=== PATIENT | female | born 1955 | race Caucasian/White ===

== ENCOUNTER → 2016-05-14 | Outpatient (CLI) | payer BC ==
--- NOTE | 2016-05-15 09:48 | MM ---
Reason for exam: screening (asymptomatic). Last mammogram was performed 1 year and 1 month ago. History: Patient is postmenopausal. Benign excisional biopsy of the left breast, 1994. Took hormonal contraceptives for 6 months. Taking estrogen for 5 years 10 months beginning at age 52. Physical Findings: A clinical breast exam by your physician is recommended on an annual basis and results should be correlated with mammographic findings. MG Screening Mammo w CAD Bilateral CC and MLO view(s) were taken. Prior study comparison: April 27, 2015, bilateral MG screening mammo w CAD. February 15, 2014, bilateral MG screening mammo w CAD. The breast tissue is heterogeneously dense. This may lower the sensitivity of mammography. Finding: There are typically benign calcifications. No significant changes in finding since April 27, 2015 and February 15, 2014. ASSESSMENT: Benign, BI-RAD 2 RECOMMENDATION: Routine screening mammogram of both breasts in 1 year.
== END | disposition home or self-care (01) ==
LOC: RADMAMWWP 08:20
PROVIDERS: ATTEND Family Medicine
DX: Z12.31 Encounter for screening mammogram for malignant neoplasm of breast (principal)

== ENCOUNTER → 2017-04-11 | Outpatient (CLI) | payer BC ==
--- NOTE | 2017-04-11 10:40 | XR ---
EXAMINATION TYPE: XR abdomen 2V DATE OF EXAM: 04/11/2017 COMPARISON: 02/11/2010 INDICATION: Epigastric pain, abdominal pain x1 day TECHNIQUE: Single view abdomen supine view. Exam is supplemented with an upright view. FINDINGS: There is a normal bowel gas pattern. Psoas margins are normal. No organomegaly is present. No suspicious air-fluid levels or differential air-fluid levels are present. IMPRESSION: 1. Normal abdomen
== END | disposition home or self-care (01) ==
LOC: RADXRMAIN 09:10
PROVIDERS: ATTEND Family Medicine
DX: R10.13 Epigastric pain (principal)
CPT/HCPCS: 74020

== ENCOUNTER → 2017-04-24 | Outpatient (CLI) | payer BC ==
--- NOTE | 2017-04-24 09:07 | CT ---
EXAMINATION TYPE: CT abdomen wo/w con DATE OF EXAM: 04/24/2017 HISTORY: Acute pancreatitis CT DLP: 2087.50mGycm Automated Exposure Control for Dose Reduction was Utilized. CONTRAST: CT scan of the abdomen is performed without and with IV Contrast, patient injected with 100 ml mL of Omnipaque 300. Delayed images of the abdomen were also obtained as well as coronal and sagittal refor mats. COMPARISON: None. FINDINGS: LUNG BASES: Minimal bibasilar subsegmental atelectasis. LIVER/GB: The liver is of unremarkable enhancement and morphology without focal hepatic lesion or int rahepatic biliary ductal dilatation. Gallbladder surgically absent. PANCREAS: Very minimal peripancreatic fat stranding is seen surrounding and predominantly at the vent ral aspect of the pancreatic body such as on series 7 image 27 through 30. There is no pancreatic romel mary dilatation or identifiable pancreatic mass. No pancreatic parenchymal calcifications. Pancreas en hances homogeneously without focal area of necrosis. No splenic arterial pseudocyst is identified or portal venous/splenic or superior mesenteric venous thrombosis. No peripancreatic fluid collections t o suggest pseudocyst or abscess. SPLEEN: No evidence of splenomegaly. ADRENALS: No significant abnormality is seen. KIDNEYS: No renal calculi on the unenhanced images. No hydronephrosis. The kidneys enhance and excret e symmetrically other than a 3 mm left anterior midpole renal lesion that is too small to accurately characterize seen on delayed images. BOWEL: No significant abnormality is seen. No dilated bowel. LYMPH NODES: No greater than 1cm abdominal or pelvic lymph nodes are appreciated. OSSEOUS STRUCTURES: Ivge-rt-[id number] multilevel degenerative changes of the visualized thoracic spine are present.. OTHER: Small fat filled umbilical hernia has a neck measuring 7 mm. IMPRESSION: Mild acute uncomplicated edematous pancreatitis without sequela of chronic pancreatitis. No peripancr eatic fluid collection to suggest pseudocyst or abscess. No portal vein, superior mesenteric vein, or splenic vein thrombosis. No pancreatic ductal dilatation or gross evidence of pancreatic mass. No ar ea of pancreatic necrosis.
== END | disposition home or self-care (01) ==
LOC: RADCTMAIN 08:01
PROVIDERS: ATTEND Physician Assistant
DX: K85.90 Acute pancreatitis without necrosis or infection, unspecified (principal)
CPT/HCPCS: 74170; Q9967

== ENCOUNTER → 2017-06-05 | Outpatient (CLI) | payer BC ==
[2017-06-05 15:35] LABS: HCT 45.8 % (34.0-46.0); HGB 14.4 gm/dL (11.4-16.0); MCH 28.3 pg (25.0-35.0); MCHC 31.3 g/dL (31.0-37.0); MCV 90.3 fL (80.0-100.0); Platelet Count 274 k/uL (150-450); RBC 5.07 m/uL (3.80-5.40); RDW 13.3 % (11.5-15.5); WBC 8.8 k/uL (3.8-10.6)
[2017-06-05 15:46] LABS: Albumin 4.1 g/dL (3.5-5.0); Bilirubin, Delta 0.4 mg/dL (0.0-0.2); Bilirubin,Unconjugated 0.1 mg/dL (0.0-1.1); Total Bilirubin 0.5 mg/dL (0.2-1.3); Total Protein 7.3 g/dL (6.3-8.2)
== END | disposition home or self-care (01) ==
LOC: LABWHC1 14:59
DX: Z09 Encounter for follow-up examination after completed treatment for conditions other than malignant neoplasm (principal); Z87.19 Personal history of other diseases of the digestive system
CPT/HCPCS: 36415; 80076; 82150; 83690; 85027; 86301

== ENCOUNTER → 2017-06-19 | Outpatient (CLI) | payer BC ==
--- NOTE | 2017-06-19 09:30 | US ---
EXAMINATION TYPE: US abdomen complete DATE OF EXAM: 06/19/2017 COMPARISON: ct abdomen April 24, 2017 CLINICAL HISTORY: Z87.19 history of pancreatitis. Large body habitus EXAM MEASUREMENTS: Liver Length: 16.1 cm Gallbladder Wall: Surgically absent cm CBD: 0.3 cm Spleen: 9.3 cm Right Kidney: 11.2 x 4.3 x 4.8 cm Left Kidney: 12.0 x 5.8 x 6.6 cm Pancreas: Tail obscured by overlying bowel gas Liver: Increased attenuation Gallbladder: Surgically absent Evidence for sonographic Mijares's sign: No CBD: wnl Spleen: wnl Right Kidney: No hydronephrosis or masses seen Left Kidney: small cortical cyst 0.9 x.08 x 0.7 cm Upper IVC: wnl portions seen Abd Aorta: wnlportions seen Exam is slightly suboptimal secondary to patient's large body habitus. The visualized liver is heterogeneously hyperechoic. The intrahepatic portion of the IVC and proxima l abdominal aorta are within normal limits. Gallbladder is surgically absent. Common bile duct is unr emarkable. The visualized portions of the pancreas are slightly heterogeneous. The spleen is unrema rkable. Kidneys are symmetric and free of hydronephrosis. No worrisome solid or cystic renal lesion s are seen. IMPRESSION: Diffuse fatty infiltration of liver redemonstrated. No ultrasound evidence for complicati on related to acute pancreatitis.
== END | disposition home or self-care (01) ==
LOC: RADUSWWP 08:10
DX: K76.0 Fatty (change of) liver, not elsewhere classified (principal); Z87.19 Personal history of other diseases of the digestive system
CPT/HCPCS: 76700

== ENCOUNTER → 2019-01-28 | Outpatient (CLI) | payer OTHER ==
--- NOTE | 2019-01-29 11:52 | MM ---
Reason for exam: screening (asymptomatic). Last mammogram was performed 2 years and 9 months ago. History: Patient is postmenopausal. Benign excisional biopsy of the left breast, 1994. Took hormonal contraceptives for 6 months. Taking estrogen for 8 years 7 months beginning at age 52. Physical Findings: A clinical breast exam by your physician is recommended on an annual basis and results should be correlated with mammographic findings. MG 3D Screening Mammo W/Cad Bilateral CC and MLO view(s) were taken. Prior study comparison: May 14, 2016, bilateral MG screening mammo w CAD. April 27, 2015, bilateral MG screening mammo w CAD. The breast tissue is heterogeneously dense. This may lower the sensitivity of mammography. There is a stable left lower inner quadrant anterior depth low density mass back to 2013. There is a new 2mm group of right central inner calcifications at middle depth. Benign appearing left calcifications noted. Post surgical change on the left. ASSESSMENT: Incomplete: need additional imaging evaluation, BI-RAD 0 RECOMMENDATION: Special view mammogram of the right breast. [facility] will attempt to contact patient to return for supplemental views.
== END | disposition home or self-care (01) ==
LOC: RADMAMWWP 11:57
PROVIDERS: ATTEND Family Medicine
DX: Z12.31 Encounter for screening mammogram for malignant neoplasm of breast (principal)
CPT/HCPCS: 77063; 77067

== ENCOUNTER → 2019-02-15 | Outpatient (CLI) | payer OTHER ==
--- NOTE | 2019-02-16 07:48 | MM ---
Reason for exam: additional evaluation requested from abnormal screening. Last mammogram was performed 1 month ago. History: Patient is postmenopausal. Benign excisional biopsy of the left breast, 1994. Took hormonal contraceptives for 6 months. Taking estrogen for 11 years beginning at age 52. Physical Findings: Nurse did not find any significant physical abnormalities on exam. MG 3D Work Up W/Cad RT CC with magnification, ML with magnification, and ML view(s) were taken of the right breast. Prior study comparison: January 28, 2019, bilateral MG 3d screening mammo w/cad. May 14, 2016, bilateral MG screening mammo w CAD. The breast tissue is heterogeneously dense. This may lower the sensitivity of mammography. Finding: There are indeterminate grouped/clustered calcifications in the inner quadrant, central position middle depth of the right breast. These results were verbally communicated with the patient and result sheet given to the patient on 02/15/19. ASSESSMENT: Suspicious, BI-RAD 4 RECOMMENDATION: Stereotactic core biopsy of the right breast. Called Dr. Lozoya's office with mammographic findings. Biopsy scheduled for 03/12/19 at 10:20. PRELIMINARY REPORT CALLED AND FAXED TO DR. LOZOYA ON 02/16/19.
== END | disposition home or self-care (01) ==
LOC: RADMAMWWP 14:26
PROVIDERS: ATTEND Family Medicine
DX: R92.8 Other abnormal and inconclusive findings on diagnostic imaging of breast (principal)
CPT/HCPCS: 77061; 77065

== ENCOUNTER 2019-02-19 10:31 | Day surgery (SDC) | payer OTHER ==
[2019-02-17 14:17] VITALS: BMI 38.4
[2019-02-19] MEDS: LACTATED RINGERS 1,000 ML IV SCH ×2 (11:02→11:24)
[2019-02-19] MEDS ORDERED: LIDOCAINE 1% 20 ML VIAL (10MG/ML) FOR IV START INTRADERMA ONE (11:03)
[2019-02-19 11:06] VITALS: TEMP 97.3
[2019-02-19] MEDS ORDERED: fentaNYL (PF) 50 MCG/ML 2 ML AMP ONE (11:24)
[2019-02-19] MEDS ORDERED: MIDAZOLAM 2 MG/2 ML VIAL ONE (11:24)
[2019-02-19] MEDS ORDERED: PROPOFOL 10 MG/ML 20 ML VIAL IV ONE (11:24)
--- NOTE | 2019-02-19 11:42 | P.PCN ---
Date of Procedure: 02/19/19 Procedure(s) Performed: BRIEF HISTORY: Patient is a 63-year-old pleasant WF scheduled for an elective colonoscopy as a part of surveillance screening for colorectal neoplasia. Her last coloscopy was 12 years ago. PROCEDURE PERFORMED: Colonoscopy with biopsy and snare polypectomy. PREOPERATIVE DIAGNOSIS: Screening for colon cancer. IV sedation per Anesthesia. PROCEDURE: After informed consent was obtained, the patient, was brought into the endoscopy unit. IV sedation was administered by Anesthesia under continuous monitoring. Digital rectal examination was normal. Initially the Olympus CF-160 flexible video colonoscope was then inserted in the rectum, gradually advanced into the cecum without any difficulty. Careful examination was performed as the scope was gradually being withdrawn. Ileocecal valve and the appendiceal orifice were visualized and appeared normal. Prep was excellent. Mucosa of the cecum appeared normal in the base of the cecum there was a 2 mm polyp that was removed by cold biopsy. In the transverse colon there was a 7 mm sessile polyp removed by snare polypectomy. Rest of the, ascending colon, transverse colon, descending colon, sigmoid colon, and rectum appeared normal. Retroflexion was performed in the rectum and no lesions were seen. The patient tolerated the procedure well. IMPRESSION: 2 mm cecal polyp status post removal by cold biopsy 7 mm transverse colon polyp status post snare polypectomy RECOMMENDATIONS: Findings of this examination were discussed with the patient as well as a family. She was advised to follow with the biopsy results. If the biopsy shows an adenoma she can have a repeat colonoscopy in 5 years.
[2019-02-19 12:06] VITALS: BP 135/82; PULSE 72; RESP 18
== END 2019-02-19 12:45 | disposition home or self-care (01) ==
LOC: ORWHC2ENDO 10:31
PROVIDERS: ATTEND Internal Medicine Gastroenterology
DX: Z12.11 Encounter for screening for malignant neoplasm of colon (principal); D12.0 Benign neoplasm of cecum; D12.3 Benign neoplasm of transverse colon; I10 Essential (primary) hypertension; J45.909 Unspecified asthma, uncomplicated; K21.9 Gastro-esophageal reflux disease without esophagitis; Z79.51 Long term (current) use of inhaled steroids; Z79.899 Other long term (current) drug therapy
CPT/HCPCS: 88305; 45380; 45385; J2250; J3010; J2704

== ENCOUNTER → 2019-03-12 | Day surgery (SDC) | payer OTHER ==
[2019-03-12 09:52] VITALS: BMI 38.4
[2019-03-12 12:20] VITALS: BP 143/77; PULSE 98; RESP 16; TEMP 97.7
--- NOTE | 2019-03-12 14:05 | MM ---
Stereotactic Mammotome core biopsy right breast. HISTORY: Microcalcifications The Microcalcifications in question within the right breast were targeted by the undersigned. Procedure was performed by the undersigned. Informed consent was obtained and all of the patients questions were answered. The standard sterile technique was utilized and appropriate local anesthesia was obtained with 1% licocaine. Mammotome probe was advanced and multiple core samples were obtained and sent to pathology for interpretation. Microclip marker was deployed at the site of biopsy. Post procedural mammogram demonstrates appropriate deployment of radiopaque clip marker. The patient tolerated the procedure well and left the department in stable condition. Pathology results are pending. IMPRESSION: Successful stereotactic core biopsy right breast with pathology results pending. Pathology Results: Benign RIGHT BREAST, STEREOTACTIC CORE BIOPSY: Fibrocystic changes including sclerosing adenosis with calcifications, cysts, fibrosis and apocrine metaplasia. Recommendation Follow up mammogram of the right breast in 6 months. TARA
== END ==
LOC: RADMAMWWP 09:18
PROVIDERS: ATTEND Surgery
DX: N60.11 Diffuse cystic mastopathy of right breast (principal); N60.21 Fibroadenosis of right breast; N60.81 Other benign mammary dysplasias of right breast
CPT/HCPCS: 88305; 19081; A4648; J2001

== ENCOUNTER → 2020-01-27 | Outpatient (CLI) | payer BC ==
--- NOTE | 2020-01-27 14:24 | MM ---
Reason for exam: additional evaluation requested from prior study. Last mammogram was performed 11 months ago. History: Patient is postmenopausal. Benign MG stereo VAD BX RT of the right breast, March 12, 2019. Benign excisional biopsy of the left breast, 1994. Took hormonal contraceptives for 6 months. Took estrogen for 11 years beginning at age 52. Physical Findings: Nurse did not find any significant physical abnormalities on exam. MG 3D Diag Mammo W/Cad JAZMINE Bilateral CC and MLO view(s) were taken. Prior study comparison: February 15, 2019, right breast MG 3d work up w/cad RT. January 28, 2019, bilateral MG 3d screening mammo w/cad. The breast tissue is heterogeneously dense. This may lower the sensitivity of mammography. Previous mammotome biopsy in the right breast. No significant new findings when compared with previous films. These results were verbally communicated with the patient and result sheet given to the patient on 01/27/20. ASSESSMENT: Benign, BI-RAD 2 RECOMMENDATION: Routine screening mammogram of both breasts in 1 year.
== END | disposition home or self-care (01) ==
LOC: RADMAMWWP 12:54
PROVIDERS: ATTEND Family Medicine
DX: N64.89 Other specified disorders of breast (principal)
CPT/HCPCS: 77062; 77066

== ENCOUNTER → 2020-10-09 | Outpatient (CLI) | payer BC ==
--- NOTE | 2020-10-09 13:10 | US ---
EXAMINATION TYPE: US venous doppler duplex LE LT DATE OF EXAM: 10/09/2020 11:33 AM COMPARISON: NONE CLINICAL HISTORY: M79.605 PAIN IN LEFT LEG. calf and left foot pain, no h/o dvt SIDE PERFORMED: Left TECHNIQUE: The lower extremity deep venous system is examined utilizing real time linear array sonog park with graded compression, doppler sonography and color-flow sonography. VESSELS IMAGED: Common Femoral Vein Deep Femoral Vein Greater Saphenous Vein * Femoral Vein Popliteal Vein Proximal Calf Veins (* superficial vessels) Left Leg: Negative for DVT IMPRESSION: No sonographic evidence for left lower extremity deep vein thrombosis.
== END | disposition home or self-care (01) ==
LOC: RADUSWWP 09:56
PROVIDERS: ATTEND Family Medicine
DX: M79.605 Pain in left leg (principal)

== ENCOUNTER → 2020-11-01 | Outpatient (CLI) | payer BC ==
--- NOTE | 2020-11-01 14:55 | XR ---
EXAMINATION TYPE: XR knee complete LT DATE OF EXAM: 11/01/2020 CLINICAL HISTORY: Left knee pain TECHNIQUE: Three views of the left knee are obtained. COMPARISON: None. FINDINGS: There is no acute fracture/dislocation evident in left knee. There is tricompartmental ost eophytosis. IMPRESSION: There is tricompartmental osteophytosis.
--- NOTE | 2020-11-01 16:25 | XR ---
EXAMINATION TYPE: XR tibia fibula LT DATE OF EXAM: 11/01/2020 CLINICAL HISTORY: Left leg pain TECHNIQUE: Two views of the left leg are obtained. COMPARISON: None. FINDINGS: There is no acute fracture or dislocation seen in the left tibia or fibula. Degenerative c hanges are noted in the knee. IMPRESSION: There is no acute fracture or dislocation seen in the left tibia or fibula.
== END | disposition home or self-care (01) ==
LOC: RADXRMAIN 14:02
PROVIDERS: ATTEND Family Medicine
DX: M25.762 Osteophyte, left knee (principal); M79.605 Pain in left leg

== ENCOUNTER → 2022-02-13 | Outpatient (CLI) | payer BC ==
--- NOTE | 2022-02-14 18:44 | MM ---
Reason for Exam: Screening (asymptomatic). Last mammogram was performed 2 year(s) and 0 month(s) ago. Patient History: Menarche at age 14. First Full-Term at age 23. Left ovary removed at age 52. Right ovary removed at age 52. Hysterectomy at age 52. Postmenopausal. Estrogen for 11 years from age 52 until age 63. Hormonal Contraceptives for 6 months. 1994, Benign Excisional Biopsy on the left side. 03/12/2019, Benign Core Biopsy on the right side. Risk Values: Marbella 5 year model risk: 2.2%. NCI Lifetime model risk: 8.6%. Prior Study Comparison: 01/28/2019 Bilateral Screening Mammogram, [facility]. 02/15/2019 Right Diagnostic Mammogram, [facility]. 01/27/2020 Bilateral Diagnostic Mammogram, [facility]. Tissue Density: The breast tissue is heterogeneously dense. This may lower the sensitivity of mammography. Findings: Analyzed By CAD. Chronic nodularity anterior left breast. Benign bilateral scattered secretory and round/punctate calcifications. No significant change from prior exams. Overall Assessment: Benign, BI-RAD 2 Management: Screening Mammogram of both breasts in 1 year. 1. Patient should continue monthly self breast exams. 2. A clinical breast exam by your physician is recommended on an annual basis. 3. This exam should not preclude additional follow-up of suspicious palpable abnormalities. Electronically signed and approved by: Kristin Schwartz M.D. Radiologist
== END | disposition home or self-care (01) ==
LOC: RADMAMWWP 08:32
PROVIDERS: ATTEND Family Medicine
DX: Z12.31 Encounter for screening mammogram for malignant neoplasm of breast (principal); Z78.0 Asymptomatic menopausal state
CPT/HCPCS: 77063; 77067

== ENCOUNTER → 2022-08-30 | Outpatient (CLI) | payer MEDICARE ==
--- NOTE | 2022-09-01 21:37 | CT ---
EXAMINATION TYPE: CT abdomen wo/w con CT DLP: 2330 mGycm, Automated exposure control for dose reduction was used. DATE OF EXAM: 08/30/2022 5:01 PM COMPARISON: CT abdomen pelvis most recent from 04/24/2017 CLINICAL INDICATION:Female, 67 years old with history of R10.13; Epigastric pain and tenderness. Hx o f pancreatitis TECHNIQUE: Axial CT of the abdomen and pelvis. Sagittal and coronal reformats were created on a [employer] workstation. Contrast used:100cc mL of Isovue 300 with IV Contrast, Oral contrast used: with Oral Contrast FINDINGS: LOWER CHEST: Unremarkable ABDOMEN LIVER: Diffuse low-attenuation to the liver parenchyma. GALLBLADDER AND BILE DUCTS: The gallbladder is surgically absent. PANCREAS: No evidence of adjacent fat stranding to suggest acute inflammation. The pancreatic duct is not dilated. No obvious masses visualized. SPLEEN: Unremarkable. ADRENAL GLANDS: Unremarkable. KIDNEYS AND URETERS: No evidence of hydronephrosis or renal calculus. The ureters are unremarkable. PELVIS BLADDER: Unremarkable REPRODUCTIVE: The uterus is surgically absent. ABDOMEN & PELVIS STOMACH AND BOWEL: No evidence of bowel obstruction. Scattered colonic diverticula. The appendix is n ormal. No hiatal hernia visualized. PERITONEUM/RETROPERITONEUM: No evidence of pneumoperitoneum or free fluid. There is a richy mesentery which is seen dating back to 2018. VASCULATURE: No evidence of aortic aneurysm. MUSCULOSKELETAL: No acute osseous abnormalities, multilevel disc degeneration changes with straighten ing of the spine. There is facet joint uncovertebral joint arthropathy throughout the spine. Multilev el disc bulging and osteophyte formation in the lower spine with at least mild spinal canal stenosis. LYMPH NODES: No gross evidence for lymphadenopathy. SOFT TISSUE/ABDOMINAL WALL: Unremarkable IMPRESSION: 1. No evidence for acute intra-abdominal process to explain the patient's pain. The pancreas is rela tively unremarkable without evidence for ductal dilation or mass. 2. Hepatic steatosis. 3. Colonic diverticulosis.
== END | disposition home or self-care (01) ==
LOC: RADCTMAIN 15:14
PROVIDERS: ATTEND Family Medicine
DX: K76.0 Fatty (change of) liver, not elsewhere classified (principal); K57.30 Diverticulosis of large intestine without perforation or abscess without bleeding; Z87.19 Personal history of other diseases of the digestive system
CPT/HCPCS: 82565; 84520; 74170; 36415; Q9967

== ENCOUNTER → 2022-11-15 | Outpatient (CLI) | payer MEDICARE ==
--- NOTE | 2022-11-15 10:03 | XR ---
EXAMINATION TYPE: XR chest 2V DATE OF EXAM: 11/15/2022 COMPARISON: 04/27/15 HISTORY: Shortness of breath TECHNIQUE: Frontal and lateral views of the chest are obtained. FINDINGS: Scattered senescent parenchymal changes noted. Hyperinflation compatible with COPD. No evidence for infiltrate. No evidence for atelectasis. Heart size is stable. Mediastinal structures are stable and grossly unremarkable. No evidence for hilar prominence. Degenerative changes dorsal spine. IMPRESSION: 1. No evidence for acute pulmonary disease.
== END | disposition home or self-care (01) ==
LOC: RADXRMAIN 09:44
PROVIDERS: ATTEND Family Medicine
DX: J20.9 Acute bronchitis, unspecified (principal)
CPT/HCPCS: 71046

== ENCOUNTER → 2023-04-10 | Outpatient (CLI) | payer MEDICARE ==
--- NOTE | 2023-04-16 12:55 | MM ---
Reason for Exam: Screening (asymptomatic). Last mammogram was performed 1 year(s) and 2 month(s) ago. Patient History: Menarche at age 14. First Full-Term at age 23. Left ovary removed at age 52. Right ovary removed at age 52. Hysterectomy at age 52. Postmenopausal. Estrogen for 11 years from age 52 until age 63. Hormonal Contraceptives for 6 months. 1994, Benign Excisional Biopsy on the left side. 03/12/2019, Benign Core Biopsy on the right side. Risk Values: Marbella 5 year model risk: 2.2%. NCI Lifetime model risk: 8.3%. Prior Study Comparison: 05/14/2016 Bilateral Screening Mammogram, [facility]. 01/28/2019 Bilateral Screening Mammogram, [facility]. 02/15/2019 Right Diagnostic Mammogram, [facility]. 01/27/2020 Bilateral Diagnostic Mammogram, [facility]. 02/13/2022 Bilateral MG 3D screening mammo w/cad, [facility]. Tissue Density: The breast tissue is heterogeneously dense. This may lower the sensitivity of mammography. Findings: Analyzed By CAD. There is no suspicious group of microcalcifications or new suspicious mass. Benign-appearing calcifications bilaterally. Overall Assessment: Benign, BI-RAD 2 Management: Screening Mammogram of both breasts in [address] [facility] will attempt to contact patient to return for supplemental views and ultrasound if indicated. Patient should continue monthly self-breast exams. A clinical breast exam by your physician is recommended on an annual basis. This exam should not preclude additional follow-up of suspicious palpable abnormalities. Note on Marbella scores and lifetime risk: 1. A Marbella score greater than 3% is considered moderate risk. If this is the case, consider specialist referral to assess eligibility for a risk reducing agent. 2. If overall lifetime risk for the development of breast cancer is 20% or higher, the patient may qualify for future screening with alternating mammogram and breast MRI. Electronically signed and approved by: Aditya Germain DO
== END | disposition home or self-care (01) ==
LOC: RADMAMWWP 09:28
PROVIDERS: ATTEND Family Medicine
DX: Z12.31 Encounter for screening mammogram for malignant neoplasm of breast (principal); Z78.0 Asymptomatic menopausal state
CPT/HCPCS: 77063; 77067

== ENCOUNTER → 2023-12-30 | Outpatient (CLI) | payer MEDICARE ==
[2023-12-30 15:14] LABS: Basophils # (A) 0.04 X 10*3/uL (0.00-0.10); Basophils % (A) 0.4 %; Eosinophils # (A) 0.04 X 10*3/uL (0.04-0.35); Eosinophils % (A) 0.4 %; Lymphocytes # (A) 3.79 X 10*3/uL (0.90-5.00); MCH 30.6 pg (27.0-32.0); MCHC 34.1 g/dL (32.0-37.0); MCV 89.5 FL (80.0-97.0); Mean Platelet Volume 10.7 FL (9.5-12.2); Monocytes # (A) 0.96 X 10*3/uL (0.20-1.00); Monocytes % (A) 8.6 %; NRBC Per 100 WBC 0 X 10*3/uL (0.00-0.01); Neutrophils # (A) 6.26 X 10*3/uL (1.80-7.70); Platelet Count 249 X 10*3/uL (140-440); RBC 4.58 X 10*6/uL (4.10-5.20); RDW 12.4 % (11.5-14.5); WBC 11.16 X 10*3/uL (4.50-10.00)
[2023-12-30 15:16] LABS: ALT 30 U/L (8-44); AST 37 U/L (13-35); Albumin 4.2 g/dL (3.8-4.9); Albumin/Globulin Ratio 1.27 Ratio (1.60-3.17); Alkaline Phosphatase 109 U/L (41-126); BUN/Creat Ratio 24.55 Ratio (12.00-20.00); Calcium 9.9 mg/dL (8.7-10.3); Carbon Dioxide 25.2 mmol/L (21.6-31.8); Chloride 102 mmol/L (96-109); Globulin 3.3 g/dL (1.6-3.3); Glucose 153 mg/dL (70-110); Potassium 3.9 mmol/L (3.5-5.5); Sodium 138 mmol/L (135-145); Total Bilirubin 0.5 mg/dL (0.3-1.2); Total Protein 7.5 g/dL (6.2-8.2)
== END | disposition home or self-care (01) ==
LOC: LABWHC1 11:19
PROVIDERS: ATTEND Internal Medicine Gastroenterology
DX: K76.0 Fatty (change of) liver, not elsewhere classified (principal)
CPT/HCPCS: 36415; 80053; 85025

== ENCOUNTER → 2024-01-01 | Outpatient (CLI) | payer MEDICARE ==
--- NOTE | 2024-01-01 17:53 | CT ---
EXAMINATION TYPE: CT chest wo con CT DLP: 394 mGycm, Automated exposure control for dose reduction was used. DATE OF EXAM: 01/01/2024 4:50 PM COMPARISON: Chest radiograph from same day. Multiple CTs of the chest with most recent on . CLINICAL INDICATION: Female, 68 years old with history of J98.4 OTHER DISORDERS OF LUNG; PHH, COUGH TECHNIQUE: Multiple axial images were obtained through the chest. Sagittal and coronal reformats were created for review. Contrast used: mL of (None if empty) Oral contrast used: (None if empty) FINDINGS: LUNGS: There is no evidence of interstitial thickening, significant groundglass opacity, honeycombing or architectural distortion in the lungs. No acute area of infiltrative or consolidative change. LAR GE AIRWAYS: Central airways are patent. No bronchiectasis. No dynamic airway collapse on expiratory i maging. PLEURA: No pleural effusion or thickening. HEART: Size within normal limits. MEDIASTINUM: No gross evidence of adenopathy. VASCULATURE: No aortic aneurysm. MUSCULOSKELETAL: No acute osseous abnormalities left shoulder arthroplasty partially visualized. SOFT TISSUES/LYMPH NODES: Unremarkable. LOWER NECK: No significant findings. UPPER ABDOMEN: No significant findings. IMPRESSION: No evidence for interstitial lung disease or acute thoracic process. No evidence for fibrosis.
== END | disposition home or self-care (01) ==
LOC: RADCTMAIN 16:18
PROVIDERS: ATTEND Internal Medicine Critical Care Medicine
DX: J98.4 Other disorders of lung (principal); R05.9 Cough, unspecified
CPT/HCPCS: 71250

== ENCOUNTER 2024-02-17 10:32 | Day surgery (SDC) | payer MEDICARE ==
[2024-02-16 10:53] VITALS: BMI 36.6
[~2024-02-17 10:32] MED LIST: LIDOCAINE 1% (10MG/ML) FOR IV START INTRADERMA PRN
[2024-02-17 11:27] VITALS: TEMP 97.9
[2024-02-17] MEDS: IV FLUID CONTINUATION 1,000 ML IV ONE (11:42)
[2024-02-17] MEDS: LACTATED RINGERS 1,000 ML IV SCH (11:42)
[2024-02-17] MEDS ORDERED: PROPOFOL 10 MG/ML 20 ML VIAL IV ONE (12:28)
--- NOTE | 2024-02-17 12:44 | P.PCN ---
Date of Procedure: 02/17/24 Procedure(s) Performed: BRIEF HISTORY: Patient is a 68-year-old pleasant white female scheduled for an elective colonoscopy as a part of evaluation for history of colon polyps. Last colonoscopy was 5 years ago. PROCEDURE PERFORMED: Colonoscopy. PREOPERATIVE DIAGNOSIS: History of colon polyps. IV sedation per Anesthesia. PROCEDURE: After informed consent was obtained, the patient, was brought into the endoscopy unit. IV sedation was administered by Anesthesia under continuous monitoring. Digital rectal examination was normal. Initially the Olympus CF-160 flexible video colonoscope was then inserted in the rectum, gradually advanced into the cecum with moderate difficulty. Careful examination was performed as the scope was gradually being withdrawn. Ileocecal valve and the appendiceal orifice were visualized and appeared normal. Prep was excellent. Mucosa of the cecum, ascending colon, transverse colon, descending colon, sigmoid colon, and rectum appeared normal. Scattered sigmoid diverticulosis retroflexion was performed in the rectum and no lesions were seen. The patient tolerated the procedure well. IMPRESSION: Normal-appearing colon from rectum to cecum with no evidence of colorectal neoplasia. Scattered sigmoid diverticulosis. RECOMMENDATIONS: Findings of this examination were discussed with the patient as well as her family. She was advised to have repeat screening colonoscopy in 10 years..
[2024-02-17 12:53] VITALS: RESP 16
[2024-02-17 13:04] VITALS: BP 137/84; PULSE 78
== END 2024-02-17 13:26 | disposition home or self-care (01) ==
LOC: ORWHC2ENDO 10:32
PROVIDERS: ATTEND Internal Medicine Gastroenterology
DX: K57.30 Diverticulosis of large intestine without perforation or abscess without bleeding (principal); Z86.0100 Personal history of colon polyps, unspecified; Z88.6 Allergy status to analgesic agent; Z88.5 Allergy status to narcotic agent
CPT/HCPCS: 45378; J2704; G0105

== ENCOUNTER 2024-02-18 11:09 | Day surgery (SDC) | payer MEDICARE ==
[2024-02-16 11:07] VITALS: BMI 36.6
[~2024-02-18 11:09] MED LIST changes: +ATROPINE SULFATE 0.4 MG/ML 1 ML VIAL IM ONE; +DEXAMETHASONE SOD PHOSPHATE 4 MG/ML 1 ML VIAL IV ONE; +LACTATED RINGERS 1,000 ML IV SCH; +MIDAZOLAM 2 MG/2 ML VIAL IV PRN; +ONDANSETRON 4 MG/2 ML VIAL IVP ONE
[2024-02-18] MEDS: LACTATED RINGERS 1,000 ML IV SCH (11:39)
[2024-02-18 11:43] VITALS: RESP 16; TEMP 98.2
[2024-02-18] MEDS: IV FLUID CONTINUATION 1,000 ML IV ONE (11:57)
[2024-02-18] MEDS ORDERED: KETAMINE HCL IN 0.9 % NACL 50 MG/5 ML SYRINGE ONE (12:00)
[2024-02-18] MEDS ORDERED: MIDAZOLAM 2 MG/2 ML VIAL ONE (12:00)
[2024-02-18] MEDS ORDERED: LIDOCAINE 1% INJ 10MG/ML (20 ML MDV) ONE (12:00)
[2024-02-18] MEDS ORDERED: PROPOFOL 10 MG/ML 20 ML VIAL IV ONE (12:00)
[2024-02-18] MEDS ORDERED: GLYCOPYRROLATE 0.2 MG/ML 2 ML VIAL ONE (12:00)
[2024-02-18] MEDS: LIDOCAINE 2% INJ 20 MG/ML INTRATRACH ONE (12:10)
[2024-02-18 13:00] VITALS: BP 123/82; PULSE 83
--- NOTE | 2024-02-18 19:41 | PCN ---
PROCEDURE NOTE PROCEDURES PERFORMED: Bronchoscopy, airway examination, therapeutic lavage, BAL, right middle lobe. PREOPERATIVE DIAGNOSIS: Chronic cough. POSTOPERATIVE DIAGNOSIS: Chronic cough. OPERATORS: Dr. Aguirre and Dr. Franco. The patient's procedure took place in room #[address] [facility]. There was informed consent and universal timeout. ANESTHESIA PROVIDED: Monitored anesthesia care. DESCRIPTION OF PROCEDURE: After the patient was adequately sedated and being fully monitored, the bronchoscope was inserted through the right nostril. It passed through the right nasopharynx into the oropharynx. The hypopharynx was identified and topicalized. The hypopharyngeal structures appeared normal. This included anterior commissure, true cords, false cords, arytenoids, piriform sinuses, right and left, and vallecula. The glottic opening was topicalized. The bronchoscope was pushed through the glottic opening into the trachea. 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 There were thick secretions noted throughout the trachea. They were suctioned. They did look purulent in nature. There was no mass or tumor. The tracheal magdalena was relatively sharp. The right and left mainstem were topicalized. The right upper lobe and its 3 segments, right middle lobe and its 2 segments, right lower lobe and its 5 segments, the left upper lobe proper and its 2 segments, lingula and its 2 segments, left lower lobe and its 4 segments all had similar findings of moderate bronchitis throughout. There was mucosal friability. There was vascular engorgement. There were thick secretions noted throughout. They were suctioned without difficulty. There was no mass or tumor. There was no significant bleeding. The bronchoscope was then wedged into the right middle lobe. We did a formal BAL. 30 mL of turbid fluid was recovered. There was no immediate complication. The patient tolerated the procedure well. The patient will be recovered. MMODL / IJN: [id number] /
[2024-02-19 14:24] LABS: Appearance,BF Hazy (Clear); RBC, Body Fluid 1590 /UL (0-2000)
[2024-02-23 09:49] LABS: Nucleated Cells, Body Fluid 145 /UL
== END 2024-02-18 13:20 | disposition home or self-care (01) ==
LOC: ORWHC2ENDO 11:09
PROVIDERS: ATTEND Internal Medicine Critical Care Medicine
DX: R05.3 Chronic cough (principal); J98.4 Other disorders of lung; J45.909 Unspecified asthma, uncomplicated; I12.9 Hypertensive chronic kidney disease with stage 1 through stage 4 chronic kidney disease, or unspecified chronic kidney disease; N18.9 Chronic kidney disease, unspecified; K57.90 Diverticulosis of intestine, part unspecified, without perforation or abscess without bleeding; E78.5 Hyperlipidemia, unspecified; K21.9 Gastro-esophageal reflux disease without esophagitis; K76.0 Fatty (change of) liver, not elsewhere classified; Z79.899 Other long term (current) drug therapy; Z79.51 Long term (current) use of inhaled steroids; Z88.1 Allergy status to other antibiotic agents; Z88.8 Allergy status to other drugs, medicaments and biological substances
CPT/HCPCS: 88108; 88305; 89050; 87070; 87205; 87116; 87102; 87077; 87186; 87206; 31624; J2250; J2003 ×2; J2704; J1596

== ENCOUNTER → 2024-02-27 | Outpatient (CLI) | payer MEDICARE ==
[2024-03-01 12:53] LABS: IgG Subclass 2 456.5 mg/dL (241.80-700.30); IgG Subclass 3 60.4 mg/dL (21.82-176.00); IgG Subclass 4 52.5 mg/dL (3.92-86.40)
== END | disposition home or self-care (01) ==
LOC: LABWHC1 13:34
PROVIDERS: ATTEND Internal Medicine Critical Care Medicine
DX: J45.909 Unspecified asthma, uncomplicated (principal)
CPT/HCPCS: 36415; 82787

== ENCOUNTER → 2024-04-13 | Outpatient (CLI) | payer MEDICARE ==
--- NOTE | 2024-04-16 16:43 | MM ---
Reason for Exam: Screening (asymptomatic). Last screening mammogram was performed 12 month(s) ago. Patient History: Menarche at age 14. First Full-Term at age 23. Left ovary removed at age 52. Right ovary removed at age 52. Hysterectomy at age 52. Postmenopausal. Estrogen for 11 years from age 52 until age 63. Hormonal Contraceptives for 6 months. 1994, Benign Excisional Biopsy on the left side. 03/12/2019, Benign Core Biopsy on the right side. Risk Values: Marbella 5 year model risk: 2.3%. NCI Lifetime model risk: 8.0%. Prior Study Comparison: 01/27/2020 Bilateral Diagnostic Mammogram, [facility]. 02/13/2022 Bilateral MG 3D screening mammo w/cad, [facility]. 04/10/2023 Bilateral MG 3D screening mammo w/cad, [facility]. Tissue Density: The breasts are heterogeneously dense, which may obscure small masses. Findings: Analyzed By CAD. Chronic nodularity on the left. Scattered benign rounded secretory calcifications. There is no suspicious group of microcalcifications or new suspicious mass in either breast. Overall Assessment: Benign, BI-RAD 2 Management: Screening Mammogram of both breasts in 1 year. Patient should continue monthly self-breast exams. A clinical breast exam by your physician is recommended on an annual basis. This exam should not preclude additional follow-up of suspicious palpable abnormalities. Note on Marbella scores and lifetime risk: 1. A Marbella score greater than 3% is considered moderate risk. If this is the case, consider specialist referral to assess eligibility for a risk reducing agent. 2. If overall lifetime risk for the development of breast cancer is 20% or higher, the patient may qualify for future screening with alternating mammogram and breast MRI. [facility], , 04/16/2024 4:40 PM. Electronically signed and approved by: Kristin Schwartz M.D. Radiologist
== END | disposition home or self-care (01) ==
LOC: RADMAMWWP 09:54
PROVIDERS: ATTEND Family Medicine
DX: Z12.31 Encounter for screening mammogram for malignant neoplasm of breast (principal); Z90.722 Acquired absence of ovaries, bilateral; Z78.0 Asymptomatic menopausal state; R92.333 Mammographic heterogeneous density, bilateral breasts
CPT/HCPCS: 77063; 77067

== ENCOUNTER → 2024-04-29 | Outpatient (CLI) | payer MEDICARE ==
[2024-04-30 06:02] LABS: Alternaria alternata IgE <0.10 kU/L; Aspergillus fumagatus IgE <0.10 kU/L; Birch IgE <0.10 kU/L; Cat Epith & Dander IgE <0.10 kU/L; Cladosporian herbarum IgE <0.10 kU/L; Clam IgE <0.10 kU/L; Cockroach IgE <0.10 kU/L; Codfish IgE <0.10 kU/L; Dermato. farinae IgE 0.29 kU/L; Dog Dander IgE <0.10 kU/L; Egg White IgE <0.10 kU/L; Elm IgE <0.10 kU/L; Maple (Box Elder) IgE <0.10 kU/L; Oak IgE <0.10 kU/L; Peanut IgE <0.10 kU/L; Ragweed,Common IgE <0.10 kU/L; Red Top (Bentgrass) IgE <0.10 kU/L; Scallop IgE <0.10 kU/L; Shrimp IgE <0.10 kU/L; Soybean IgE <0.10 kU/L; Walnut IgE (Food) <0.10 kU/L
== END | disposition home or self-care (01) ==
LOC: LABWHC1 15:19
PROVIDERS: ATTEND Internal Medicine Critical Care Medicine
DX: J45.909 Unspecified asthma, uncomplicated (principal)
CPT/HCPCS: 36415; 82785; 85008; 86003

== ENCOUNTER → 2024-06-23 | Outpatient (CLI) | payer MEDICARE ==
[2024-06-23 15:41] LABS: Basophils # (A) 0.06 X 10*3/uL (0.00-0.10); Basophils % (A) 0.6 %; Eosinophils % (A) 1.1 %; HCT 40.9 % (37.2-46.3); HGB 13.4 g/dL (12.0-15.0); Lymphocytes # (A) 3.57 X 10*3/uL (0.90-5.00); Lymphocytes % (A) 37.7 %; MCH 30.1 pg (27.0-32.0); MCHC 32.8 g/dL (32.0-37.0); MCV 91.9 FL (80.0-97.0); Mean Platelet Volume 10.7 FL (9.5-12.2); Monocytes # (A) 0.82 X 10*3/uL (0.20-1.00); Monocytes % (A) 8.7 %; NRBC Per 100 WBC 0 X 10*3/uL (0.00-0.01); Neutrophils # (A) 4.88 X 10*3/uL (1.80-7.70); Neutrophils % (A) 51.6 %; Platelet Count 308 X 10*3/uL (140-440); RBC 4.45 X 10*6/uL (4.10-5.20); RDW 12.9 % (11.5-14.5); WBC 9.46 X 10*3/uL (4.50-10.00)
[2024-06-23 15:57] LABS: ALT 45 U/L (8-44); AST 43 U/L (13-35); Albumin 4.1 g/dL (3.8-4.9); Albumin/Globulin Ratio 1.37 Ratio (1.60-3.17); Alkaline Phosphatase 132 U/L (41-126); BUN/Creat Ratio 21.18 Ratio (12.00-20.00); Blood Urea Nitrogen 23.3 mg/dL (9.0-27.0); Calcium 10.2 mg/dL (8.7-10.3); Chloride 100 mmol/L (96-109); Glucose 172 mg/dL (70-110); Potassium 4.4 mmol/L (3.5-5.5); Sodium 139 mmol/L (135-145); Total Bilirubin 0.5 mg/dL (0.3-1.2); Total Protein 7.1 g/dL (6.2-8.2)
== END | disposition home or self-care (01) ==
LOC: LABWHC1 08:48
PROVIDERS: ATTEND Nurse Practitioner Family
DX: K76.0 Fatty (change of) liver, not elsewhere classified (principal)
CPT/HCPCS: 36415; 80053; 85025

== ENCOUNTER → 2024-09-01 | Outpatient (CLI) | payer MEDICARE ==
[2024-09-01 14:40] VITALS: BP 139/84; PULSE 98; RESP 16; TEMP 98
--- NOTE | 2024-09-01 15:01 | P.SLEEP ---
History of Present Illness DATE: 09/01/2024 CONSULTATION/NEW PATIENT EVALUATION HISTORY OF PRESENT ILLNESS/SLEEP-WAKE EVALUATION: 69-year-old lady had been e valuated in the sleep center for possible obstructive sleep apnea hypopnea syndrome. SLEEP SCHEDULE: Usually sleep schedule from midnight until 7:30 AM. FALLING ASLEEP: No problems with falling asleep. DURING SLEEP: Patient snores and wakes up from sleep 3 times with nocturia no history of hypnogogical hallucinations, sleep paralysis, or cataplexy. DURING THE DAY/WAKE STATE: Patient may feel some tiredness during the day. [place] sleepiness scale is 4. Patient takes 1 nap around 6:30 PM.[]. PAST MEDICAL HISTORY: Asthma, hypertension acid reflux, shoulders problems, chronic cough. PAST SURGICAL HISTORY: Tonsillectomy, total hysterectomy, cholecystectomy, left shoulder surgery. MEDICATIONS: Please see below. SOCIAL HISTORY: Please see below. FAMILY HISTORY: Please see below. REVIEW OF SYSTEMS: Snoring, multiple awakenings from sleep. No fevers. No double vision. No recent chest pain. No shortness of breath. No abdominal pain. No bleeding episodes. No blood in urine. No seizure episodes. PHYSICAL EXAMINATION: GENERAL: A pleasant patient without any distress. VITAL SIGNS: Please see below, weight 257 pounds, BMI 40.2. HEENT: PERRLA, EOMI. Evaluation of oropharynx showed tongue protrudes midline, low position of soft palate Mallampati 4. NECK: Supple. No JVD. Thyroid is not palpable. 16.5 inches in circumference. LUNGS: Clear to percussion and to auscultation. Good air exchange. No wheezing or rhonchi. HEART: S1, S2 regular. No murmurs, gallops or rubs. ABDOMEN: Soft and nontender. Bowel sounds are present. No organomegaly appreciated. EXTREMITIES: No clubbing or cyanosis. ACCOUNT DEVELOPMENT MANAGER: Awake, alert, and oriented x3. Cranial nerves 2 to 7 intact. There is no fasciculation or atrophy noted. No focal deficits observed. ASSESSMENT: 1. Snoring, multiple awakenings from sleep, extremely low position of soft palate Mallampati 4, wide neck 16.5 inches in circumference, history of airway collapse on CT scan. Obstructive sleep apnea hypopnea syndrome. 2. Obesity, BMI 40.2. 3. Asthma. 4. Hypertension. 5 acid reflux. 6 . Shoulder problems. 7. Neck pain. 8. Status post tonsillectomy. 9 . Status post cholecystectomy. 10. Status post total hysterectomy. 11. Status post left shoulder surgery. PLAN: 1. Polysomnography for evaluation of patient's breathing during sleep. 2. Following plan after reading sleep study. 3. Preferable position during sleep on the side. 4. No driving if patient feels any sleepiness. Patient is aware of civil and criminal liability for unsafe driving. 5. Sleep hygiene with regular sleep time for at least 7.5-8 hours. 6. Watching and losing weight. Thank you very much for referring this patient for consultation. Sincerely, Neri Lim MD, PhD, FAASM. Diplomat of [employer], Sleep Medicine Board by [employer] Residential Field Manager [facility] [place] cc: Robert Lozoya DO Past Medical History Past Medical History: Asthma, Hypertension, Liver Disease Additional Past Medical History / Comment(s): Fatty liver. History of Any Multi-Drug Resistant Organisms: ESBL Date of last positivie culture/infection: 04/28/18 MDRO Source:: ESBL URINE Past Surgical History: Breast Surgery, Joint Replacement Additional Past Surgical History / Comment(s): Total left shoulder arthroplasty, left breast biopsy. Past Anesthesia/Blood Transfusion Reactions: No Reported Reaction Past Psychological History: No Psychological Hx Reported Additional Psychological History / Comment(s): Pt resides with her spouse. She is independent. She uses no assistive device. She drives. Smoking Status: Never smoker Past Alcohol Use History: Rare Past Drug Use History: None Reported - Past Family History Father Brother(s) Family Medical History: CVA/TIA, Deep Vein Thrombosis (DVT), Myocardial Infarction (DC) Additional Family Medical History / Comment(s): brother - DVT, Stroke Sister(s) Family Medical History: Cancer Additional Family Medical History / Comment(s): Lung cancer, breast cancer. Mother Family Medical History: Cancer Additional Family Medical History / Comment(s): Mother of lung cancer at age 49 yrs. Medications and Allergies Home Medications Medication Instructions Recorded Confirmed Type Celecoxib [CeleBREX] 200 mg PO DAILY 04/26/15 09/01/24 History Montelukast [Singulair] 10 mg PO HS 04/26/15 09/01/24 History Multivit-Min/FA/Lycopen/Lutein 1 tab PO DAILY 04/26/15 09/01/24 History [Centrum Silver Tablet] Biotin [Biotin Disolve] 5,000 mcg PO DAILY 02/17/19 09/01/24 History Cranberry Fruit Extract [Cranberry] 500 mg PO DAILY 02/17/19 09/01/24 History Metoprolol Succinate (ER) [Toprol 25 mg PO HS 02/17/19 09/01/24 History XL] Trimethoprim [Trimpex] 100 mg PO DAILY 02/17/19 09/01/24 History Albuterol Sulfate/Budesonide 1 puff INHALATION DIRECTED PRN 02/16/24 09/01/24 History [Airsupra 90-80 Mcg Inhaler] Fluticasone/Umeclidin/Vilanter 1 puff INHALATION QAM 02/16/24 09/01/24 History [Trelegy Ellipta 200-62.5-25] Losartan/Hydrochlorothiazide 1 tab PO QAM 02/16/24 09/01/24 History [Losartan-Hctz 100-25 mg Tab] HYDROcodone/APAP 10-325MG [Riggins 10 - 325 mg PO DIRECTED PRN 05/21/24 09/01/24 History 10-325] Omeprazole 40 mg PO DAILY 09/01/24 09/01/24 History Allergies Allergy/AdvReac Type Severity Reaction Status Date / Time rofecoxib [From Vioxx] AdvReac Diarrhea Verified 05/26/24 07:39 tramadol HCl [From Ultram] AdvReac Diarrhea Verified 05/26/24 07:39 Physical Exam Vitals: Vital Signs Temp Pulse Resp BP Pulse Ox 09/01/24 14:40 98 F 98 16 139/84 95 Intake and Output 08/31/24 09/01/24 09/01/24 22:59 06:59 14:59 Other: Weight 116.573 kg Sleep Note - Sleep Data ESS Total: 4 - Sleep Note Sleep Note: Temperature: 98 F Pulse Rate: 98 Respiratory Rate: 16 Blood Pressure: 139/84 SpO2: 95 Height: 5 ft 7 in Weight: 116.573 kg BMI: Neck Circumference:
== END ==
LOC: 3 N SLEEP 14:22
PROVIDERS: ATTEND Internal Medicine
DX: G47.33 Obstructive sleep apnea (adult) (pediatric) (principal); E66.9 Obesity, unspecified; J45.909 Unspecified asthma, uncomplicated; I10 Essential (primary) hypertension; K21.9 Gastro-esophageal reflux disease without esophagitis; M54.2 Cervicalgia; Z90.49 Acquired absence of other specified parts of digestive tract; Z68.41 Body mass index [BMI] 40.0-44.9, adult; Z98.890 Other specified postprocedural states; Z88.5 Allergy status to narcotic agent; Z90.89 Acquired absence of other organs; Z90.710 Acquired absence of both cervix and uterus; Z88.6 Allergy status to analgesic agent
CPT/HCPCS: 99211

== ENCOUNTER 2024-10-12 19:54 | Outpatient (CLI) | payer MEDICARE ==
--- NOTE | 2024-10-13 13:23 | P.PCN ---
Description of Procedure: POLYSOMNOGRAPHY REPORT PROCEDURE(S)/DATE(S): Polysomnography 10/12/2024 CLINICAL: Patient has been seen in the sleep center for evaluation of obstructive sleep apnea-hypopnea syndrome. Please see my consultation. Sleep study has been done for evaluation of patient breathing during the sleep. PROCEDURE: The standard montage for clinical polysomnography included the electroencephalogram, the electrooculogram, the mentalis surface electromyography and Lead II cardiography. The respiratory battery consisted of measurements of nasal/buccal air flow, pressure transducer measurements from nose, thoracic and/or abdominal effort and intercostal surface electromyography. Video monitoring has been done to check for any parasomnia events. Nocturnal oxyhemoglobin saturations were obtained by finger oximetry. Step-durbin titration with positive airway pressure was utilized to control the respiratory events, if necessary. RESULTS: During the diagnostic sleep study sleep efficiency was decreased to 69.7%. Latency to sleep onset was prolonged to 52.0 min. Sleep architecture showed stage NI was short 3.3%, Delta sleep was absent 0%, REM sleep was normal 21.3%. Respiratory channel showed 0 obstructive apneas, 0 mixed apneas, 0 central apneas, 26 hypopneas with lowest oxygen level 84%. Total apnea hypopnea index was 6.0. Heart rate was in the range between 72 and 31, average 77. EMG showed 0 periodic limb movements per hour with 0 micro-arousals per hour. IMPRESSIONS: 1. Obstructive sleep apnea hypopnea syndrome in mild range. 2. No significant periodic limb movements have been documented. 3. Hypertension Please see other impressions from consultation PLAN: 1. The patient will have AutoPAP treatment for correction of respiratory abnormalities during the sleep. 2. Losing weight program. 3. Sleep hygiene with regular time in bed for at least 7-1/2 hours. 4. No driving if feeling sleepiness. 5. I will see patient for follow-up visit to evaluate clinical response on treatment, compliance with treatment and [place] adjustments related to mask fit ting pressure and humidification. Thank you very much for allowing me to participate in the management of your patient. Sincerely, Neri Lim MD, PhD, FAASM. Diplomat of [employer], Sleep Medicine Board by [employer] [facility] [place] cc: Robert Lozoya DO
== END 2024-10-13 05:40 | disposition home or self-care (01) ==
LOC: 3 N SLEEP 19:54
PROVIDERS: ATTEND Internal Medicine
DX: G47.33 Obstructive sleep apnea (adult) (pediatric) (principal); I10 Essential (primary) hypertension; Z88.5 Allergy status to narcotic agent; Z88.8 Allergy status to other drugs, medicaments and biological substances
CPT/HCPCS: 95810